=== PATIENT | female | born 1950 | race Caucasian/White ===

== ENCOUNTER 2023-05-16 07:56 | Inpatient (IN) | payer MEDICARE, OTHER ==
[~2023-05-16] VITALS: Ht 157.5 cm; Wt 58.5 kg
[2023-05-16 09:56] LABS: Basophils # (auto) 0 10 ^3/uL (0-0.2); Basophils % (auto) 0.3 % (0.0-2.0); Eosinophils # (auto) 0.4 10 ^3/uL (0-0.8); Eosinophils % (auto) 3.1 % (0.0-7.0); Hematocrit 41.1 % (36.0-46.0); Hemoglobin 13.3 g/dL (12.2-16.2); Mean Corpuscular Hgb Conc. 32.3 g/dL (32.0-36.0); Mean Corpuscular Volume 95.8 fL (80.0-100.0); Monocytes # (auto) 1.2 10 ^3/uL (0-1.3); Monocytes % (auto) 9.2 % (0.0-12.0); Neutrophils # (auto) 9.7 10 ^3/uL (1.6-8.6); Neutrophils % (auto) 72.4 % (37.0-80.0); Nucleated Red Blood Cells % 0.1 %; Red Blood Cells 4.29 10^6/uL (4.0-5.20); Red Cell Distribution Width 14.2 % (11.8-14.3); White Blood Cell 13.4 10^3/uL (4.4-10.8)
[2023-05-16 10:06] LABS: Alanine Aminotransferase 17 U/L (7-40); Albumin 4.5 g/dL (3.2-4.8); Alkaline Phosphatase 79 U/L (46-116); Anion Gap 7 (5-15); Aspartate Aminotransferase 21 U/L (13-40); BUN/Creatinine Ratio 15.4 (10.0-20.0); Bilirubin, Total 0.4 mg/dL (0.2-1.0); Blood Alcohol 3.5 mg/dL (<10); Blood Urea Nitrogen 16 mg/dL (9-23); Calcium 9.9 mg/dL (8.5-10.1); Carbon Dioxide 26 mmol/L (20-30); Chloride 109 mmol/L (98-107); Glucose 113 mg/dL (74-106); Potassium 4.5 mmol/L (3.5-5.1); Sodium 142 mmol/L (136-145); Total Protein 6.8 g/dL (5.7-8.2)
[2023-05-16] MEDS ORDERED: diphenhdrAMINE HCL 50 MG/1 ML VL IM ONE (10:30)
[2023-05-16] MEDS ORDERED: LORazepam 2MG/ML-1ML VIAL IM ONE (10:30)
[2023-05-16] MEDS ORDERED: SODIUM CHLORIDE 0.9% 1,000 ML IV ONE (10:45)
[2023-05-16] MEDS ORDERED: SODIUM CHLORIDE 0.9% 500 ML IVB ONE (10:45)
[2023-05-16 11:38] VITALS: RESP 20
[2023-05-16 13:58] LABS: Amphetamine Screen, Urine Neg (NEGATIVE); Barbiturate Scree,Urine Neg (NEGATIVE); Benzodiazephine Screen, Urine Neg (NEGATIVE); Cocaine Screen, Urine Neg (NEGATIVE); Opiate Scree,Urine Neg (NEGATIVE)
[2023-05-16 13:59] LABS: Cannabinoid Screen, Urine Neg (NEGATIVE); Phencyclidine Screen, Urine Neg (NEGATIVE)
[2023-05-16] MEDS ORDERED: LORazepam 2MG/ML-1ML VIAL IV ONE (14:00)
[2023-05-16 14:01] LABS: Urine Bacteria MOD /hpf (None Seen); Urine Blood Negative /uL (Negative); Urine Clarity HAZY (Clear); Urine Color Yellow (Yellow); Urine Protein, UAD Negative (Negative); Urine Specific Gravity 1.019 (1.001-1.035); Urine Urobilinogen Normal (Negative); Urine WBC 57 /hpf (0 - 5); Urine WBC Clumps PRESENT /hpf (None Seen)
[2023-05-16] MEDS ORDERED: cefTRIAXone 1GM/50ML D5W 50 ML IV ONE (14:45)
[2023-05-16 19:30] VITALS: PULSE 76; RESP 20; O2SAT 95
[2023-05-16] MEDS ORDERED: ONDANSETRON HCL 4 MG/2 ML VIAL IV PRN (21:00)
[2023-05-16] MEDS ORDERED: MORPHINE SULFATE INJ 2 MG/ml SYRG IV PRN (21:00)
[2023-05-16] MEDS ORDERED: ALBUTEROL SULF 2.5 MG/0.5ML(0.5%) NEB SOLN NEB PRN (21:00)
[2023-05-16] MEDS ORDERED: NITROGLYCERIN 0.4 MG SL TAB SL PRN (21:00)
[2023-05-16 21:24] VITALS: BP 124/61; PULSE 83; RESP 18; TEMP 98.8; O2SAT 92
[2023-05-17 05:42] LABS: Basophils # (auto) 0 10 ^3/uL (0-0.2); Basophils % (auto) 0.5 % (0.0-2.0); Eosinophils # (auto) 0.4 10 ^3/uL (0-0.8); Eosinophils % (auto) 4.3 % (0.0-7.0); Hematocrit 33.9 % (36.0-46.0); Hemoglobin 11.1 g/dL (12.2-16.2); Lymphocytes # (auto) 2.2 10 ^3/uL (0.4-5.4); Mean Corpuscular Hemoglobin 30.8 pg (28.0-32.0); Mean Corpuscular Hgb Conc. 32.7 g/dL (32.0-36.0); Mean Corpuscular Volume 94.2 fL (80.0-100.0); Monocytes # (auto) 1.3 10 ^3/uL (0-1.3); Monocytes % (auto) 14.1 % (0.0-12.0); Neutrophils # (auto) 5.5 10 ^3/uL (1.6-8.6); Neutrophils % (auto) 58.1 % (37.0-80.0); Red Cell Distribution Width 14.4 % (11.8-14.3); White Blood Cell 9.4 10^3/uL (4.4-10.8)
[2023-05-17 05:51] LABS: Alanine Aminotransferase 19 U/L (7-40); Albumin 3.6 g/dL (3.2-4.8); Alkaline Phosphatase 66 U/L (46-116); Anion Gap 6 (5-15); Aspartate Aminotransferase 30 U/L (13-40); BUN/Creatinine Ratio 12.2 (10.0-20.0); Bilirubin, Total 0.6 mg/dL (0.2-1.0); Blood Urea Nitrogen 10 mg/dL (9-23); Calcium 8.8 mg/dL (8.7-10.4); Carbon Dioxide 24 mmol/L (20-30); Chloride 109 mmol/L (98-107); Glucose 84 mg/dL (74-106); Sodium 139 mmol/L (136-145); Total Protein 5.6 g/dL (5.7-8.2)
[2023-05-17 08:00] VITALS: PULSE 83; RESP 27; O2SAT 94
[2023-05-17] MEDS: cefTRIAXone 1GM/50ML D5W 50 ML IV SCH (08:41)
[2023-05-17] MEDS: LOSARTAN POTASSIUM 25 MG TAB PO SCH (08:42)
[2023-05-17] MEDS: ATENOLOL 50 MG TAB PO SCH (08:43)
[2023-05-17] MEDS: ACETAMINOPHEN 325 MG TAB PO PRN ×2 (09:30→22:13)
[2023-05-17] MEDS ORDERED: ENOXAPARIN SOD 40 MG/0.4 ML SYRINGE SC SCH (10:00)
[2023-05-17 15:01] LABS: COVID19 ANTIGEN SOFIA FIA NEGATIVE (NEGATIVE); Rapid Influenza A Negative (Negative); Rapid Influenza B Negative (Negative)
[2023-05-17 15:05] LABS: INR 1.05 (0.9-1.15); Partial Thromboplastin Time 30.8 SEC (24.5-34.5)
[2023-05-17 16:36] VITALS: BP 135/67; PULSE 76; RESP 18; TEMP 97.9; O2SAT 97
[2023-05-17 16:39] VITALS: BP 135/67; PULSE 76; RESP 18; TEMP 97.9; O2SAT 97
[2023-05-17] MEDS ORDERED: HYDR12.59 PO (18:06)
[2023-05-17] MEDS ORDERED: BUPR150T18 PO (18:06)
[2023-05-17] MEDS ORDERED: PANT40TA2 PO (18:06)
[2023-05-17] MEDS ORDERED: MECL1TAB31 PO (18:06)
[2023-05-17] MEDS ORDERED: ATEN-60 PO (18:06)
[2023-05-17 20:00] VITALS: BP 135/66; PULSE 78; PULSE 79; RESP 17; RESP 22; TEMP 92.8; O2SAT 93
[2023-05-17] MEDS ORDERED: traZODone HCL 50 MG TAB PO ONE (20:15)
[2023-05-17] MEDS ORDERED: PANTOPRAZOLE 40 MG/10 ML VIAL INJ IV ONE (20:15)
[2023-05-17] MEDS ORDERED: buPROPion HCL 75 MG TAB PO ONE (20:15)
[2023-05-17 22:00] VITALS: BP 135/66; PULSE 78; RESP 17; TEMP 97.8; O2SAT 93
[2023-05-18] VITALS (7 sets, daily range): BP systolic 125–147; BP diastolic 65–83; PULSE 72–93; RESP 16–21; TEMP 97.8–98.4; O2SAT 93–94
[2023-05-18 05:43] LABS: Basophils # (auto) 0.1 10 ^3/uL (0-0.2); Basophils % (auto) 1.1 % (0.0-2.0); Eosinophils # (auto) 0.7 10 ^3/uL (0-0.8); Eosinophils % (auto) 8.3 % (0.0-7.0); Hematocrit 36.6 % (36.0-46.0); Hemoglobin 12.1 g/dL (12.2-16.2); Lymphocytes % (auto) 24.3 % (10.0-50.0); Mean Corpuscular Hemoglobin 31.4 pg (28.0-32.0); Mean Corpuscular Volume 95.2 fL (80.0-100.0); Monocytes % (auto) 12.6 % (0.0-12.0); Neutrophils # (auto) 4.4 10 ^3/uL (1.6-8.6); Neutrophils % (auto) 53.7 % (37.0-80.0); Nucleated Red Blood Cells % 0.2 %; Red Blood Cells 3.84 10^6/uL (4.0-5.20); Red Cell Distribution Width 14.3 % (11.8-14.3); White Blood Cell 8.2 10^3/uL (4.4-10.8)
[2023-05-18] MEDS: buPROPion HCL 75 MG TAB PO SCH ×2 (05:49→17:46)
[2023-05-18 05:56] LABS: Carbon Dioxide 25 mmol/L (20-30)
[2023-05-18 06:01] LABS: BUN/Creatinine Ratio 12.5 (10.0-20.0); Blood Urea Nitrogen 11 mg/dL (9-23); Glucose 116 mg/dL (74-106)
[2023-05-18 06:37] LABS: Anion Gap 5 (5-15); Chloride 109 mmol/L (98-107); Magnesium 2.1 mg/dL (1.6-2.6); Potassium 4.7 mmol/L (3.5-5.1); Sodium 139 mmol/L (136-145)
[2023-05-18] MEDS ORDERED: MECLIZINE HCL 25 MG TAB PO PRN (09:15)
[2023-05-18] MEDS: PANTOPRAZOLE 40 MG/10 ML VIAL INJ IV SCH (11:36)
[2023-05-18] MEDS: ATENOLOL 50 MG TAB PO SCH (11:37)
[2023-05-18] MEDS: LOSARTAN POTASSIUM 25 MG TAB PO SCH (11:38)
[2023-05-18] MEDS: cefTRIAXone 1GM/50ML D5W 50 ML IV SCH (11:38)
[2023-05-18] MEDS: NICOTINE 21MG/24 HR TOPICAL PATCH TD SCH (11:51)
[2023-05-18] MEDS: ACETAMINOPHEN 325 MG TAB PO PRN (21:22)
[2023-05-18] MEDS ORDERED: traZODone HCL 50 MG TAB PO SCH (22:00)
[2023-05-19 05:00] VITALS: BP 118/67; PULSE 74; RESP 17; TEMP 97.8; O2SAT 94
[2023-05-19] MEDS: buPROPion HCL 75 MG TAB PO SCH (06:04)
[2023-05-19 08:00] VITALS: PULSE 71
[2023-05-19 09:00] VITALS: BP 116/68; PULSE 73; RESP 14; TEMP 98.4; O2SAT 91
[2023-05-19] MEDS ORDERED: NITR-52 PO ×2 (10:18→10:56)
[2023-05-19] MEDS ORDERED: MUPI2OIN2 EX ×2 (10:18→10:56)
[2023-05-19] MEDS: cefTRIAXone 1GM/50ML D5W 50 ML IV SCH (10:38)
[2023-05-19] MEDS: PANTOPRAZOLE 40 MG/10 ML VIAL INJ IV SCH (10:39)
[2023-05-19] MEDS: LOSARTAN POTASSIUM 25 MG TAB PO SCH (10:39)
[2023-05-19] MEDS: ATENOLOL 50 MG TAB PO SCH (10:40)
[2023-05-19] MEDS: NICOTINE 21MG/24 HR TOPICAL PATCH TD SCH (10:41)
[2023-05-19 13:00] VITALS: BP 137/66; PULSE 72; RESP 16; TEMP 98.2; O2SAT 92
[2023-05-21 10:41] LABS: Hepatitis B Surface Antibody Negative (Negative)
[2023-05-21 11:13] LABS: Hepatitis C Antibody Negative (Negative)
== END 2023-05-19 15:00 | disposition home or self-care (01) | DRG 71 ==
LOC: EDBD 07:56 → ER 07:56 → TELE 20:57 → TELE-EAST 05-17 15:19 → UNDODISIN 05-19 11:55 → UNDODEPER 05-19 14:09
PROVIDERS: ADMIT Internal Medicine Pulmonary Disease; ATTEND Student in an Organized Health Care Education/Training Program
DX: G93.41 Metabolic encephalopathy (principal); H53.129 Transient visual loss, unspecified eye; N39.0 Urinary tract infection, site not specified; I13.0 Hypertensive heart and chronic kidney disease with heart failure and stage 1 through stage 4 chronic kidney disease, or unspecified chronic kidney disease; I50.32 Chronic diastolic (congestive) heart failure; N18.31 Chronic kidney disease, stage 3a; Z20.822 Contact with and (suspected) exposure to COVID-19; K21.9 Gastro-esophageal reflux disease without esophagitis; F17.200 Nicotine dependence, unspecified, uncomplicated; H93.19 Tinnitus, unspecified ear; F20.9 Schizophrenia, unspecified; F31.9 Bipolar disorder, unspecified; Z82.49 Family history of ischemic heart disease and other diseases of the circulatory system; Z82.0 Family history of epilepsy and other diseases of the nervous system; Z90.710 Acquired absence of both cervix and uterus; Z71.6 Tobacco abuse counseling; B95.62 Methicillin resistant Staphylococcus aureus infection as the cause of diseases classified elsewhere
CPT/HCPCS: 36415; 70450; 70551; 71045; 76775; 80048; 80053; 80307; 80320; 81001; 82140; 82962; 83735; 83880; 84443; 84484; 85025; 85379; 85384; 85610; 85730; 86706; 86803; 87040; 87081; 87086; 87426; 87804; 93005; 93306; 93886; 95819; 96361; 96365; 96372; 96375; 99291; C9113; G0378; J0696